=== PATIENT | male | born 1960 | race Caucasian/White ===

== ENCOUNTER 2016-10-28 15:57 | Emergency (ER) | payer BC, OTHER ==
[~2016-10-28] VITALS: Ht 175.3 cm; Wt 80.0 kg
[2016-10-28 15:59] VITALS: Ht 175.3 cm; Wt 80.0 kg
--- NOTE | 2016-10-28 16:29 | ERD ---
ER Documentation Chief Complaint Date/Time DATE: 10/28/16 TIME: 16:24 Chief Complaint LEFT ANKLE PAIN AFTER A FALL HPI This is a 55-year-old male who presents the emergency department today with his daugher complaining of left ankle and leg pain after sustaining a fall earlier today. Patient states he was walking downstairs carrying a tray when he tripped and fell. States that he took ibuprofen approximately 2 hours ago. States that he did hit the side of his head but denies any loss of consciousness , blurred vision, nausea vomiting, headache. States he landed on the carpet. states that he also hit his shoulders. Denies any fevers or chills. ROS All systems reviewed and are negative except as per history of present illness. Medications Home Meds Active Scripts Acetaminophen* (Tylophen*) 500 Mg Capsule, 1 CAP PO Q6H Y for PAIN AND OR ELEVATED TEMP, #30 CAP Prov:ANA BURNS PA-C 10/28/16 Naproxen* (Naprosyn*) 500 Mg Tablet, 500 MG PO BID Y for PAIN AND/OR INFLAMMATION, #30 TAB Prov:ANA BURNS PA-C 10/28/16 Hydrocodone/Acetaminophen (Mon[place] 5-325 Tablet) 1 Each Tablet, 1 TAB PO Q6H Y for PAIN, #20 TAB Prov:ANA BURNS PA-C 10/28/16 Allergies Allergies: Coded Allergies: No Known Allergy (Unverified , 10/28/16) PMhx/Soc History of Surgery: Yes (appendectomy) Anesthesia Reaction: No Hx Neurological Disorder: No Hx Respiratory Disorders: No Hx Cardiac Disorders: Yes (hypercholesterolemia) Hx Psychiatric Problems: No Hx Miscellaneous Medical Probl: No Hx Alcohol Use: No Hx Substance Use: No Hx Tobacco Use: No Smoking Status: Never smoker Physical Exam Vitals Vital Signs Date Time Temp Pulse Resp B/P Pulse Ox O2 Delivery O2 Flow Rate FiO2 10/28/16 15:59 98.3 80 18 137/80 99 Physical Exam Const: Sitting in wheelchair, no acute distress Head: Atraumatic Eyes: Normal Conjunctiva. PERRLA. EOM intact ENT: Normal External Ears, Nose and Mouth. No epistaxis. No hemotympanum Neck: Full range of motion..~ No meningismus. Resp: Clear to auscultation bilaterally Cardio: Regular rate and rhythm, no murmurs Abd: Soft, non tender, non distended. Normal bowel sounds Skin: No petechiae or rashes MSK: Left ankle with no obvious deformity. Moderate effusion over lateral aspect of ankle. Unable to assess range of motion secondary to pain. Tenderness palpation diffusely tibia fibula. Mild tenderness over lateral aspect of foot. Pulses 2+. Distal neurovascularly intact. Neur: Awake and alert. Cranial nerves II through XII intact. Psych: Normal Mood and Affect Results 24 hrs Current Medications Medications (Trade) Dose Ordered Sig/Lori Route PRN Reason Start Time Stop Time Status Last Admin Dose Admin Acetaminophen/ Hydrocodone Bitart ([place] (5/325)) 1 tab ONCE ONCE PO 10/28/16 16:30 10/28/16 16:31 DC 10/28/16 16:37 DIAGNOSTIC IMAGING REPORT Patient: YOSELYN GOOD : 1960 Age: 55 Sex: M MR #: [id number] DOS: 10/28/16 0000 Ordering MD: ANA BURNS PA-C Location: [facility] Room/Bed: PROCEDURE: XR Foot. CLINICAL INDICATION: Pain. TECHNIQUE: 4 views of the left foot. COMPARISON: None available. FINDINGS: There is a displaced fracture of the distal fibula. No fracture or dislocation of the foot is identified. The joint spaces are preserved. There is no significant soft tissue swelling. IMPRESSION: 1. No fracture or dislocation of the left foot. 2. Displaced fracture of the distal fibula. RPTAT: HTAR .Elijah Delong MD, MD Date Time Electronically viewed and signed by .Elijah Delong MD, on 10/28/2016 19:11 .R/ CC: ANA BURNS PA-C DIAGNOSTIC IMAGING REPORT Patient: YOSELYN GOOD : 1960 Age: 55 Sex: M MR #: [id number] DOS: 10/28/16 1609 Ordering MD: DELTA JUÁREZ PA-C Location: [facility] Room/Bed: PROCEDURE: XR Ankle. CLINICAL INDICATION: Left ankle pain. TECHNIQUE: Three views of the left ankle. COMPARISON: None available. FINDINGS: There is a partially displaced oblique fracture of the distal fibular diametaphysis, with fracture line extension into the ankle mortise. The joint spaces are preserved. There is soft tissue swelling over the lateral ankle. IMPRESSION: 1. Partially displaced oblique fracture of the distal fibular diametaphysis, with fracture line extension into the ankle mortise. RPTAT: HTAR .Elijah Delong MD, Date Time Electronically viewed and signed by .Elijah Delong MD, on 10/28/2016 19:24 .R/ CC: DELTA JUÁREZ PA-C DIAGNOSTIC IMAGING REPORT Patient: YOSELYN GOOD : 1960 Age: 55 Sex: M MR #: [id number] DOS: 10/28/16 0000 Ordering MD: ANA BURNS PA-C Location: [facility] Room/Bed: PROCEDURE: XR Tibia and Fibula. CLINICAL INDICATION: Pain. TECHNIQUE: AP and lateral views of the left tibia and fibula. COMPARISON: None available. FINDINGS: There is a partially displaced oblique fracture of the distal fibular diametaphysis. The joint spaces are preserved There is soft tissue swelling over the lateral ankle. IMPRESSION: 1. Partially displaced oblique fracture of the distal fibular diametaphysis. RPTAT: HTAR .Elijah Delong MD, Date Time Electronically viewed and signed by .Elijah Delong MD, on 10/28/2016 19:26 .R/ CC: ANA BURNS PA-C Procedures/MDM This 55-year-old male who presents to the emergency department today complaining of left ankle and leg pain after sustaining a mechanical fall earlier today. Patient also reported hitting his head however he denied loss of consciousness or any nausea or vomiting. Given the patient's age I did recommend to the patient that I recommended a head CT scan to rule out any bleed. Patient declined a head CT scan at this time. He also declined x-rays on his shoulders. Patient stated that he did not have a headache and he did not want a CT scan and he was only concerned about his leg. I did obtain images of the lower leg. Per the radiology report images of the tibia fibula show a partially displaced oblique fracture of the distal fibular diet metaphysis there is soft tissue swelling over the lateral ankle. Images of the left ankle show partially displaced oblique fracture of the distal fibular diametaphysis with fracture line extension into the ankle more T' s Images of the left foot show no fracture dislocation of the left foot. No significant soft tissue swelling. Patient was given Monroe here in the emergency department. I will give him a prescription for Monroe and Naprosyn and Tylenol for home. Patient was placed in a splint. He was distal neurovascularly intact pre-and post splint application. Patient does have a primary care physician appears to have good follow-up. I will also give him a list of resources for loan specialist. He was given crutches to help ambulate At this time the patient is stable for discharge and outpatient management. Patient should follow up with their PCP in the next 1-2 days. They may return to the emergency department sooner for any persistent or worsening of symptoms. Patient understood and agreed with the plan. Departure Diagnosis: Primary Impression: Fibula fracture Encounter type: initial encounter Fibula location: lateral malleolus Fracture type: closed Fracture alignment: displaced Laterality: left Qualified Code: S82.62XA - Closed displaced fracture of lateral malleolus of left fibula, initial encounter Condition: Fair ANA BURNS PA-C Oct 28, 2016 16:29
[2016-10-28] MEDS ORDERED: HYDROCODONE/APAP (5/325) TAB PO ONE (16:30)
--- NOTE | 2016-10-28 19:11 | RADRPT ---
PROCEDURE: XR Foot. CLINICAL INDICATION: Pain. TECHNIQUE: 4 views of the left foot. COMPARISON: None available. FINDINGS: There is a displaced fracture of the distal fibula. No fracture or dislocation of the foot is identi fied. The joint spaces are preserved. There is no significant soft tissue swelling. IMPRESSION: 1. No fracture or dislocation of the left foot. 2. Displaced fracture of the distal fibula. RPTAT: HTAR .Elijah Delong MD, Date Time Electronically viewed and signed by .Elijah Delong MD, on 10/28/2016 19:11 .R/
--- NOTE | 2016-10-28 19:24 | RADRPT ---
PROCEDURE: XR Ankle. CLINICAL INDICATION: Left ankle pain. TECHNIQUE: Three views of the left ankle. COMPARISON: None available. FINDINGS: There is a partially displaced oblique fracture of the distal fibular diametaphysis, with fracture l ine extension into the ankle mortise. The joint spaces are preserved. There is soft tissue swellin g over the lateral ankle. IMPRESSION: 1. Partially displaced oblique fracture of the distal fibular diametaphysis, with fracture line ext ension into the ankle mortise. RPTAT: HTAR .Elijah Delong MD, MD Date Time Electronically viewed and signed by .Elijah Delong MD, MD on 10/28/2016 19:24 .R/
--- NOTE | 2016-10-28 19:26 | RADRPT ---
PROCEDURE: XR Tibia and Fibula. CLINICAL INDICATION: Pain. TECHNIQUE: AP and lateral views of the left tibia and fibula. COMPARISON: None available. FINDINGS: There is a partially displaced oblique fracture of the distal fibular diametaphysis. The joint spac es are preserved There is soft tissue swelling over the lateral ankle. IMPRESSION: 1. Partially displaced oblique fracture of the distal fibular diametaphysis. RPTAT: HTAR .Elijah Delong MD, MD Date Time Electronically viewed and signed by .Elijah Delong MD, on 10/28/2016 19:26 .R/
[2016-10-28] MEDS ORDERED: ACET500C5 PO (19:48)
[2016-10-28] MEDS ORDERED: NAPR-260 PO (19:48)
[2016-10-28] MEDS ORDERED: HYDR-906 PO (19:48)
[2016-10-28 20:35] VITALS: BP 128/66; PULSE 71; RESP 18; TEMP 98.5
== END 2016-10-28 20:35 | disposition home or self-care (01) ==
LOC: FTE 15:57
DX: S82.62XA Displaced fracture of lateral malleolus of left fibula, initial encounter for closed fracture (principal); W10.9XXA Fall (on) (from) unspecified stairs and steps, initial encounter; Y92.9 Unspecified place or not applicable
CPT/HCPCS: 29515; 73590; 73610; 73630; Z7502; Z7610

== ENCOUNTER 2016-11-04 19:25 | Emergency (ER) | payer BC ==
[~2016-11-04] VITALS: Ht 177.8 cm; Wt 75.0 kg
[~2016-11-04 19:25] MED LIST: ACET500C5 PO; HYDR-906 PO; NAPR-260 PO
[2016-11-04 19:27] VITALS: Ht 177.8 cm; Wt 75.0 kg
[2016-11-04] MEDS ORDERED: HYDROCODONE/APAP (5/325) TAB PO ONE (20:00)
--- NOTE | 2016-11-04 20:43 | ERD ---
ER Documentation Chief Complaint Date/Time DATE: 11/04/16 TIME: 20:41 Chief Complaint L ankle injury x 1 wk- scheduled for ankle surgery next wk,c/o ankle pain HPI Patient is a 55-year-old male who presents to the ED with left ankle injury 1 week. Patient was here 1 week ago after sustaining a fall on the stairs. He states that he does have a fracture on his fibula and is planning on having surgery. He followed up with orthopedics 3 days ago and is planning on having surgery. Patient is here complaining of pain. He does have a prostate biopsy on Sunday11/07/2016 and states that due to the biopsy his surgery will be postponed. Patient has not taken any medications for his pain besides Tylenol. Patient also states that the splint that was placed in the orthopedic office is very loose and he would like a wrist splint placement. He states that the splint that was placed here at [facility] 1 week ago was much better and would like that. He denies any numbness or tingling. He denies any cough, shortness of breath or difficulty breathing. He denies any leg swelling. He states that the pain is located on his ankle. He denies any new onset injury or trauma. He denies any headache or dizziness. ROS All systems reviewed and are negative except as per history of present illness. Medications Home Meds Active Scripts Acetaminophen* (Tylophen*) 500 Mg Capsule, 1 CAP PO Q6H Y for PAIN AND OR ELEVATED TEMP, #20 CAP Prov:NORTH POWELL PA-C 11/04/16 Acetaminophen* (Tylophen*) 500 Mg Capsule, 1 CAP PO Q6H Y for PAIN AND OR ELEVATED TEMP, #30 CAP Prov:ANA BURNS PA-C 10/28/16 Naproxen* (Naprosyn*) 500 Mg Tablet, 500 MG PO BID Y for PAIN AND/OR INFLAMMATION, #30 TAB Prov:ANA BURNS PA-C 10/28/16 Hydrocodone/Acetaminophen ([place] 5-325 Tablet) 1 Each Tablet, 1 TAB PO Q6H Y for PAIN, #20 TAB Prov:ANA BURNS PA-C 10/28/16 Allergies Allergies: Coded Allergies: No Known Allergy (Unverified , 10/28/16) PMhx/Soc History of Surgery: Yes (appendectomy, varicocele) Anesthesia Reaction: No Hx Neurological Disorder: No Hx Respiratory Disorders: No Hx Cardiac Disorders: Yes (hypercholesterolemia) Hx Psychiatric Problems: No Hx Miscellaneous Medical Probl: No Hx Alcohol Use: No Hx Substance Use: No Hx Tobacco Use: No Smoking Status: Never smoker FmHx Family History: No coronary disease, No diabetes, No other Physical Exam Vitals Vital Signs Date Time Temp Pulse Resp B/P Pulse Ox O2 Delivery O2 Flow Rate FiO2 11/04/16 19:27 98.4 85 20 127/74 98 Physical Exam GENERAL: Well-developed, well-nourished male. Appears in no acute distress. HEAD: Normocephalic, atraumatic. EYES: Pupils are equally reactive bilaterally. EOMs grossly intact. No conjunctival erythema. ENT: Moist mucous membranes. No uvula deviation. No kissing tonsils. No exudates. NECK: Supple. No lymphadenopathy or thyromegaly. No meningismus. negative kernig. negative brudinski. LUNG: Clear to auscultation bilaterally. No rhonchi, wheezing, rales or coarse breath sounds. HEART: Regular rate and rhythm. No murmurs, rubs or gallops. Extremities: Equal pulses bilaterally. No peripheral clubbing, cyanosis or edema. No unilateral leg swelling. pulses intact. no cold or warmth. NEUROLOGIC: Alert and oriented. Moving all four extremities. 5/5 strength in all extremities. Normal speech. unSteady gait. SKIN: Normal color. Warm and dry. No rashes or lesions. Capillary refill < 2 seconds Results 24 hrs Current Medications Medications (Trade) Dose Ordered Sig/Lori Route PRN Reason Start Time Stop Time Status Last Admin Dose Admin Acetaminophen/ Hydrocodone Bitart ([place] (5/325)) 1 tab ONCE ONCE PO 11/04/16 20:00 11/04/16 20:57 DC Acetaminophen (Tylenol Tab) 650 mg ONCE ONCE PO 11/04/16 21:00 11/04/16 21:01 DC 11/04/16 21:01 Procedures/MDM ER COURSE: I kept the patient and/or family informed of laboratory and diagnostic imaging results throughout the emergency room course. IMAGING STUDIES [address] [address] Radiology Main Line: [phone] DIAGNOSTIC IMAGING REPORT Patient: YOSELYN GOOD : 1960 Age: 55 Sex: M MR #: [id number] DOS: 11/04/16 1950 Ordering MD: NORTH POWELL PA-C Location: [facility] Room/Bed: PROCEDURE: XR Left Ankle. CLINICAL INDICATION: Left ankle pain. Fracture. TECHNIQUE: 3 views. Frontal, lateral, and oblique. COMPARISON: 10/28/2016. FINDINGS: Bone detail is obscured by the overlying posterior splint. As seen previously, there is an oblique mildly displaced fracture of the lateral malleolus extending to the distal articular surface of the fibula. There is no other fracture and there is no dislocation. Articular surfaces are intact. There is no lytic or blastic lesion. There is no radiopaque foreign body. IMPRESSION: 1. No change in the appearance of the fracture of the lateral malleolus. RPTAT: QQ .Inocente Carlos MD, MD Date Time Electronically viewed and signed by .Inocente Carlos MD, on 11/04/2016 20:53 .R/ CC: NORTH POWELL PA-C MEDICATIONS Tylenol. Tolerated well with no adverse reaction. PROCEDURES Splint Assessment: Neurovascularly intact post splint placement with good fit. MEDICAL DECISION MAKING: This is a 55-year-old who presents with left ankle pain 1 week. Vital signs were reviewed. Patient is afebrile. Patient is not hypoxic. Patient is not toxic or ill-appearing. Patient is here for reapplication of splint and for Tylenol prescription. Patient does have a follow-up with his orthopedic surgeon and is scheduled for surgery. I have low suspicion for compartment syndrome or reinjury. X-rays read by radiologist is unchanged from last x-ray. Low suspicion for dislocation septic joint, compartment syndrome, osteomyelitis, avascular necrosis, DVT, Achilles tendon rupture, cellulitis. At this time, unable to rule out any tendon and ligament injuries. DISCHARGE: At this time, patient is stable for discharge and outpatient management with no new complaints during the ER course. Patient was sent home with splint, Tylenol prescription and to follow-up with orthopedics.. Patient will be discharged home with instructions to recheck for new or worsening symptoms such as fever, nausea, weakness, LOC and to follow up with primary care in the next 1-2 days. Patient was advised to return to the ER for any new or worsening symptoms. Plan was discussed and patient and/or family understands and agrees. Home instructions were given. Departure Diagnosis: Primary Impression: Ankle injury Encounter type: subsequent encounter Laterality: left Qualified Code: S99.912D - Ankle injury, left, subsequent encounter Condition: Stable NORTH POWELL PA-C Nov 04, 2016 20:43
--- NOTE | 2016-11-04 20:54 | RADRPT ---
PROCEDURE: XR Left Ankle. CLINICAL INDICATION: Left ankle pain. Fracture. TECHNIQUE: 3 views. Frontal, lateral, and oblique. COMPARISON: 10/28/2016. FINDINGS: Bone detail is obscured by the overlying posterior splint. As seen previously, there is an oblique mildly displaced fracture of the lateral malleolus extending to the distal articular surface of the fibula. There is no other fracture and there is no dislocat ion. Articular surfaces are intact. There is no lytic or blastic lesion. There is no radiopaque foreign body. IMPRESSION: 1. No change in the appearance of the fracture of the lateral malleolus. RPTAT: QQ .Inocente Carlos MD, Date Time Electronically viewed and signed by .Inocente Carlos MD, on 11/04/2016 20:53 .R/
[2016-11-04] MEDS ORDERED: ACETAMINOPHEN 325 MG TAB PO ONE (21:00)
[2016-11-04] MEDS ORDERED: ACET500C5 PO (21:16)
[2016-11-04 22:09] VITALS: BP 146/76; PULSE 65; RESP 16; TEMP 97.9
== END 2016-11-04 22:10 | disposition home or self-care (01) ==
LOC: FTE 19:25
DX: S99.912A Unspecified injury of left ankle, initial encounter (principal); W10.9XXA Fall (on) (from) unspecified stairs and steps, initial encounter; Y92.9 Unspecified place or not applicable
CPT/HCPCS: 29505; 73610; 99283; Z7610